=== PATIENT | male | born 1990 | race Caucasian/White ===

== ENCOUNTER 2017-06-16 22:18 | Emergency (ER) | payer SELFPAY ==
--- NOTE | 2017-06-16 22:53 | EDM.PDOC ---
ED HPI GENERAL MEDICAL PROBLEM - General Chief Complaint: ENT Problem Stated Complaint: SORE THROAT Time Seen by Provider: 06/16/17 22:46 - History of Present Illness INITIAL COMMENTS - FREE TEXT/NARRATIVE: HISTORY AND PHYSICAL: History of present illness: The patient is a 27-year-old male who presents with a one-week history of episodic sore throat cough mostly dry and tacky body aches subjective fevers and chills and nasal congestion. He said it started and after a day or so it seemed to improve but then it returned. He has a bad taste in his mouth and feels that the swallowing phlegm and nasal drainage and it is causing him to have episodic vomiting. He has no abdominal pain no shortness of breath or chest pain no diarrhea. Use [id number] medications only. He says he has not had a documented fever at home just felt feverish. Review of systems: As per history of present illness and below otherwise all systems reviewed and negative. Past medical history: As per history of present illness and as reviewed below otherwise noncontributory. Surgical history: As per history of present illness and as reviewed below otherwise noncontributory. Social history: No reported history of drug or alcohol abuse. Family history: As per history of present illness and as reviewed below otherwise noncontributory. Physical exam: Gen.: Well-developed well-nourished thin man who is nontoxic and vital signs have been reviewed by me. He speaks with slightly worse voice but is not muffled and is not breathless and he has slight nasal quality. HEENT: Atraumatic, normocephalic, pupils reactive, negative for conjunctival pallor or scleral icterus, mucous membranes moist, throat clear, neck supple, nontender, trachea midline. The tonsils are regressed but there is some diffuse posterior oropharyngeal erythema and some shoddy anterior cervical adenopathy without nuchal rigidity or posterior adenopathy. Lungs: Clear to auscultation, breath sounds equal bilaterally, chest nontender. No stridor or wheezing or work of breathing Heart: S1S2, regular rate and rhythm no overt murmurs Abdomen: Soft, nondistended, nontender. NABS. Pelvis: Deferred Genitourinary: Deferred. Rectal: Deferred. Extremities: Atraumatic, negative for cords or calf pain. Neurovascular unremarkable. Neuro: Awake, alert, oriented. Cranial nerves II through XII unremarkable. Cerebellum unremarkable. Motor and sensory unremarkable throughout. Exam nonfocal. Diagnostics: Chest x-ray rapid strep influenza swab Therapeutics: Viscous lidocaine for throat pain, Rocephin Impression: Left lower lobe early pneumonia Definitive disposition and diagnosis as appropriate pending reevaluation and review of above. throat Pain Score (Numeric/FACES): 7 - Related Data Allergies Allergy/AdvReac Type Severity Reaction Status Date / Time Penicillins Allergy Anaphylactic Verified 06/16/17 22:30 Shock Sulfa (Sulfonamide Allergy Hives Verified 06/16/17 22:30 Antibiotics) Home Meds: Home Meds . [No Known Home Meds] 06/16/17 [History] Past Medical History - Past Health History Medical/Surgical History: Denies Medical/Surgical History Musculoskeletal History: Reports: Other (See Below) Other Musculoskeletal History: hip fracture with surgical repair;hand sx - Past Surgical History Other HEENT Surgeries/Procedures: strabismus surgery x 2 Social & Family History - Family History Family Medical History: Noncontributory - Tobacco Use Smoking Status *Q: Current Every Day Smoker Years of Tobacco use: 4 Packs/Tins Daily: 1 - Alcohol Use Days Per Week of Alcohol Use: 1 Number of Drinks Per Day: 3 Total Drinks Per Week: 3 - Recreational Drug Use Recreational Drug Use: No ED ROS GENERAL - Review of Systems Review Of Systems: ROS reveals no pertinent complaints other than HPI. ED EXAM, GENERAL - Physical Exam Exam: See Below (See dictation) Course - Vital Signs Last Recorded V/S: Last Vital Signs Temp 37.2 C 06/16/17 22:30 Pulse 90 06/16/17 22:30 Resp 16 06/16/17 22:30 BP 126/76 06/16/17 22:30 Pulse Ox 96 06/16/17 22:30 - Orders/Labs/Meds Orders: Active Orders 24 hr Category Date Time Status Chest 2V [CR] Stat Exams 06/16/17 22:50 Taken CULTURE STREP A CONFIRMATION [RM] Stat Lab 06/16/17 23:00 Results STREP SCRN A RAPID W CULT CONF [RM] Stat Lab 06/16/17 23:00 Results Lidocaine 2% [Xylocaine 2% Viscous] Med 06/16/17 23:52 Once 15 ml PO ONETIME ONE cefTRIAXone [Rocephin] Med 06/16/17 23:52 Once 1,000 mg IM ONETIME ONE Departure - Departure Time of Disposition: 23:53 Disposition: Home, Self-Care 01 Condition: Good Clinical Impression: Pneumonia Qualifiers: Pneumonia type: due to unspecified organism Laterality: left Lung location: lower lobe of lung Qualified Code(s): J18.1 - Lobar pneumonia, unspecified organism - Discharge Information Referrals: PCP,None [Primary Care Provider] - Forms: ED Department Discharge Additional Instructions: The following information is given to patients seen in the emergency department who are being discharged to home. This information is to outline your options for follow-up care. We provide all patients seen in our emergency department with a follow-up referral. The need for follow-up, as well as the timing and circumstances, are variable depending upon the specifics of your emergency department visit. If you don't have a primary care physician on staff, we will provide you with a referral. We always advise you to contact your personal physician following an emergency department visit to inform them of the circumstance of the visit and for follow-up with them and/or the need for any referrals to a consulting specialist. The emergency department will also refer you to a specialist when appropriate. This referral assures that you have the opportunity for followup care with a specialist. All of these measure are taken in an effort to provide you with optimal care, which includes your followup. Under all circumstances we always encourage you to contact your private physician who remains a resource for coordinating your care. When calling for followup care, please make the office aware that this follow-up is from your recent emergency room visit. If for any reason you are refused follow-up, please contact the [facility] emergency department at and ask to speak to the emergency department charge nurse. [facility] Primary care- [place] [address] Please use [id number] Tylenol or hypertrophic and for fever and pain and also use the viscous lidocaine you have been given for your throat. Take antibiotics as directed and you can start that prescription tomorrow. Please call and follow-up in our clinic for reevaluation and further care and return to ER as needed and as discussed. Push hydration and rest - My Orders Last 24 Hours: My Active Orders 06/16/17 22:50 Chest 2V [CR] Stat 06/16/17 23:00 CULTURE STREP A CONFIRMATION [RM] Stat STREP SCRN A RAPID W CULT CONF [RM] Stat 06/16/17 23:52 Lidocaine 2% [Xylocaine 2% Viscous] 15 ml PO ONETIME ONE cefTRIAXone [Rocephin] 1,000 mg IM ONETIME ONE - Assessment/Plan Last 24 Hours: My Active Orders 06/16/17 22:50 Chest 2V [CR] Stat 06/16/17 23:00 CULTURE STREP A CONFIRMATION [RM] Stat STREP SCRN A RAPID W CULT CONF [RM] Stat 06/16/17 23:52 Lidocaine 2% [Xylocaine 2% Viscous] 15 ml PO ONETIME ONE cefTRIAXone [Rocephin] 1,000 mg IM ONETIME ONE
[2017-06-16] MEDS ORDERED: Lidocaine 2% Viscous Solution 15 ML Cup PO ONE (23:52)
[2017-06-16] MEDS ORDERED: cefTRIAXone 250 MG Vial IM ONE (23:52)
[2017-06-16] MEDS ORDERED: Levofloxacin 250 MG Tab PO ONE (23:58)
[2017-06-17 00:24] VITALS: BP 122/75
--- NOTE | 2017-06-17 10:34 | CR ---
EXAM DATE: 06/16/17 PATIENT'S AGE: 27 Patient: OLGA BELLO Facility: [place], [place] Site . Site : 1990 Study: XRay Chest [id number] 11:37:44 PM Ordering Physician: Anup Rosen Final Report: INDICATION: Cough, fever x4 days TECHNIQUE: Chest 2 views COMPARISON: None FINDINGS: Cardiovascular and mediastinum: Heart size and vasculature are normal in caliber and appearance. Mediastinum is within normal limits. Lungs and pleural spaces: Subtle left lower lobe consolidation best appreciated on the lateral projection. No sign of pleural effusion. No pneumothorax. Bones and soft tissues: No significant findings. IMPRESSION: Subtle left lower lobe consolidation. Please correlate for signs of pneumonia. Dictated by Bebo Hyde MD @ 06/16/2017 11:41:06 PM Dictated by: Bebo Hyde MD @ 06/16/2017 23:41:12 (Electronic Signature) Report Signed by Proxy. [facility]
== END 2017-06-17 00:21 | disposition home or self-care (01) ==
LOC: MW.ED 22:18
DX: J18.9 Pneumonia, unspecified organism (principal); F17.210 Nicotine dependence, cigarettes, uncomplicated; Z88.0 Allergy status to penicillin; Z88.2 Allergy status to sulfonamides
CPT/HCPCS: 71020; 87081; 87804; 87880; 99283; A9270; 99284

== ENCOUNTER 2017-09-12 21:54 | Emergency (ER) | payer SELFPAY ==
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
[2017-09-12] MEDS ORDERED: Acetaminophen/HYDROcodone 325-5 MG Tab PO ONE (23:53)
[2017-09-13 00:53] VITALS: BP 127/83
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
== END 2017-09-13 00:22 | disposition home or self-care (01) ==
LOC: MW.ED 21:54
DX: M25.512 Pain in left shoulder (principal); M62.838 Other muscle spasm; F17.210 Nicotine dependence, cigarettes, uncomplicated; Z88.0 Allergy status to penicillin; Z88.2 Allergy status to sulfonamides
CPT/HCPCS: 73030; 99283; A4566; A9270; 99282